=== PATIENT | male | born 1955 | race Caucasian/White ===

== ENCOUNTER 2017-03-14 18:14 | Emergency (ER) | payer OTHER ==
[~2017-03-14] VITALS: Ht 170.2 cm; Wt 111.1 kg
[~2017-03-14 18:14] MED LIST: ACET325 PO; AMLO10 PO; AMLO5 PO; ASPI325 PO; ASPI325EC PO; ASPI81EC PO; ATEN50; ATEN50 PO; ATOR10 PO; ATOR40TA PO; Aspirin EC325 MG PO; Aspirin EC81 MG PO; CIPR500 PO; CIPRO500 MG PO; CITA20 PO; CLOP75 PO; Celexa10 MG PO; Coreg12.5 MG PO; DOXY100 PO; ESCI20; FINA5 PO; FISH1000 PO; FURO40 PO; Fergon240 M1 PO; GEMF600 PO; GLIP5 PO; GLIP5ER PO; Glucophage1000 MG PO; HYDACE5 PO; HYDR1TAB94 PO; INSDET100 SC; ISOMON30; ISOSORBIDE; Isosorbide Mono60 MG PO; K-Dur20 MEQ PO; KETO10 PO; KOMBIGLYZE PO; KOMBIGLYZE XR; LIRA0.6P; Lyrica75 MG PO; MEDIDATE; MELO7.5 PO; METF500 PO; METF500C; METPHE20CR; NITR.4SL SL; NITRO PO; Norco 10-325 T1 EACH PO; OLME20 PO; OXYACE5T PO; OXYB5 PO; PANT40; PANT40 PO; PREG100 PO; PROM25 PO; PROSTATE HEALT1 EACH; RANO500T PO; RAPAFLO PO; Rapaflo8 MG PO; SIMV40 PO; SULTRIDS PO; TAMS.4ER PO; [UNRECOGNIZED DRUG - OTHER]; [UNRECOGNIZED DRUG - OTHER]; [UNRECOGNIZED DRUG - REMARK]; [UNRECOGNIZED DRUG - REMARK]; victoza SQ
[2017-03-14 18:57] LABS: BASOPHILS ABSOLUTE AUTO 0.04 K/mm3 (0.00-0.23); BASOPHILS PERCENT AUTO 0 % (0-2); EOSINOPHILS ABSOLUTE AUTO 0.27 K/mm3 (0.00-0.68); EOSINOPHILS PERCENT AUTO 2 % (0-6); Hematocrit 46.5 % (37.0-53.0); Hemoglobin 16.3 g/dL (13.5-17.5); IMMATURE GRAN ABSOLUTE AUTO 0.11 K/mm3 (0.00-0.10); IMMATURE GRAN PERCENT AUTO 1 % (0-1); LYMPHOCYTES ABSOLUTE AUTO 2.51 K/mm3 (0.84-5.20); LYMPHOCYTES PERCENT AUTO 16 % (21-46); MONOCYTES ABSOLUTE AUTO 2.08 K/mm3 (0.16-1.47); MONOCYTES PERCENT AUTO 13 % (4-13); Mean Corpuscular HGB 31.4 pg (26.0-34.0); Mean Corpuscular HGB Conc 35.1 g/dL (31.5-36.5); Mean Corpuscular Volume 90 fL (80-100); Mean Platelet Volume 10.7 fL (9.1-12.4); NEUTROPHILS ABSOLUTE AUTO 10.84 K/mm3 (1.96-9.15); NEUTROPHILS PERCENT AUTO 68 % (41-73); Platelet Count 310 K/mm3 (150-400); RDW Coefficient Variation 12.9 % (11.7-14.2); RDW Standard Deviation 42.1 fL (35.1-46.3); Red Blood Cell Count 5.19 M/mm3 (4.30-5.90); White Blood Cell Count 15.85 K/mm3 (4.00-11.30)
[2017-03-14] MEDS ORDERED: OXYC1TAB11 PO (19:08)
[2017-03-14 19:26] LABS: Alanine Aminotransfer (ALT/SGP 28 U/L (12-78); Albumin, Blood 3.6 g/dL (3.4-5.0); Albumin/Globulin Ratio 0.7 (0.8-1.8); Alk Phos 113 U/L (50-136); Anion Gap 12 mmol/L (6-16); Aspartate Aminotrans (AST/SGOT 20 U/L (12-37); Bilirubin, Total 0.6 mg/dL (0.1-1.0); Blood Urea Nitrogen 21 mg/dL (8-24); Bun/Creatinine Ratio 25.3 (12.0-20.0); CO2, Blood 24 mmol/L (21-32); Calcium, Blood 9.8 mg/dL (8.5-10.1); Chloride, Blood 101 mmol/L (98-108); Creatinine, Blood 0.83 mg/dL (0.60-1.20); Globulin, Blood 5.2 g/dL (2.2-4.0); Glomerular Filtration Rate >60 (60-); Glucose, Blood 175 mg/dL (70-99); Potassium, Blood 3.7 mmol/L (3.5-5.5); Sodium, Blood 137 mmol/L (136-145); Total Protein, Blood 8.8 g/dL (6.4-8.2); Troponin I <0.015 ng/mL (0.000-0.040)
[2017-03-14 20:04] LABS: Source, Urine Clean Catch
[2017-03-14 20:06] LABS: Appearance, Urine Cloudy (Clear); Bilirubin, Urine Neg (Neg); Blood, Urine 3+ (Neg); Color, Urine Yellow (P-Yellow); Glucose Qualitative, Urine Neg (Neg); Ketones, Urine Neg (Neg); Leukocyte Esterase, Urine 3+ (Neg); Nitrite, Urine Neg (Neg); Protein, Urine 2+ (Neg); Specific Gravity, Urine 1.015 (1.003-1.022); Urobilinogen, Urine NORM (Normal)
[2017-03-14 20:15] LABS: Bacteria Mod /hpf; Red Blood Cells, Urine 0-2 /hpf (0-2); Squamous Epithelial Cells Few /hpf (Few); White Blood Cells, Urine TNTC /hpf (0-5)
[2017-03-14] MEDS ORDERED: Prednisone20 MG PO (22:56)
[2017-12-16] MEDS ORDERED: CEPH500 PO (17:56)
== END 2017-03-14 23:20 | disposition home or self-care (01) ==
LOC: ER 18:14
PROVIDERS: Physician Assistant
DX: R55 Syncope and collapse (principal); S01.01XA Laceration without foreign body of scalp, initial encounter; G93.89 Other specified disorders of brain; N39.0 Urinary tract infection, site not specified; I10 Essential (primary) hypertension; E11.9 Type 2 diabetes mellitus without complications; E78.00 Pure hypercholesterolemia, unspecified; I25.2 Old myocardial infarction; Z88.8 Allergy status to other drugs, medicaments and biological substances; Z79.899 Other long term (current) drug therapy; Z79.82 Long term (current) use of aspirin; Z79.4 Long term (current) use of insulin; Z95.5 Presence of coronary angioplasty implant and graft; Z87.442 Personal history of urinary calculi; W22.8XXA Striking against or struck by other objects, initial encounter; Y92.002 Bathroom of unspecified non-institutional (private) residence as the place of occurrence of the external cause
CPT/HCPCS: 12011; 36415; 70450; 71045; 72125; 80053; 81001; 84484; 85025; 87077; 87086; 87186; 90471; 90714; 93005; 93010; 96374; 96375; 99284; J1100; J2405

== ENCOUNTER 2017-03-17 17:05 | Emergency (ER) | payer OTHER ==
[~2017-03-17] VITALS: Ht 170.2 cm; Wt 95.2 kg
[~2017-03-17 17:05] MED LIST changes: +OXYC1TAB11 PO; +Prednisone20 MG PO
[2017-03-17 21:18] LABS: BASOPHILS ABSOLUTE AUTO 0.04 K/mm3 (0.00-0.23); BASOPHILS PERCENT AUTO 0 % (0-2); EOSINOPHILS PERCENT AUTO 0 % (0-6); Hematocrit 42.1 % (37.0-53.0); Hemoglobin 14.3 g/dL (13.5-17.5); IMMATURE GRAN ABSOLUTE AUTO 0.12 K/mm3 (0.00-0.10); IMMATURE GRAN PERCENT AUTO 1 % (0-1); LYMPHOCYTES ABSOLUTE AUTO 1.58 K/mm3 (0.84-5.20); LYMPHOCYTES PERCENT AUTO 11 % (21-46); MONOCYTES ABSOLUTE AUTO 1.79 K/mm3 (0.16-1.47); MONOCYTES PERCENT AUTO 12 % (4-13); Mean Corpuscular HGB 29.9 pg (26.0-34.0); Mean Corpuscular Volume 88 fL (80-100); Mean Platelet Volume 10.4 fL (9.1-12.4); NEUTROPHILS ABSOLUTE AUTO 11.36 K/mm3 (1.96-9.15); NEUTROPHILS PERCENT AUTO 76 % (41-73); Platelet Count 259 K/mm3 (150-400); RDW Coefficient Variation 12.4 % (11.7-14.2); RDW Standard Deviation 40.2 fL (35.1-46.3); Red Blood Cell Count 4.78 M/mm3 (4.30-5.90); White Blood Cell Count 14.89 K/mm3 (4.00-11.30)
[2017-03-17 21:38] LABS: Alanine Aminotransfer (ALT/SGP 25 U/L (12-78); Albumin, Blood 3.5 g/dL (3.4-5.0); Albumin/Globulin Ratio 0.7 (0.8-1.8); Alk Phos 103 U/L (50-136); Anion Gap 9 mmol/L (6-16); Aspartate Aminotrans (AST/SGOT 13 U/L (12-37); Bilirubin, Total 0.4 mg/dL (0.1-1.0); Blood Urea Nitrogen 27 mg/dL (8-24); Bun/Creatinine Ratio 34.4 (12.0-20.0); CO2, Blood 27 mmol/L (21-32); Calcium, Blood 9.5 mg/dL (8.5-10.1); Chloride, Blood 101 mmol/L (98-108); Creatinine, Blood 0.79 mg/dL (0.60-1.20); Globulin, Blood 4.9 g/dL (2.2-4.0); Glomerular Filtration Rate >60 (60-); Glucose, Blood 268 mg/dL (70-99); Potassium, Blood 3.6 mmol/L (3.5-5.5); Sodium, Blood 137 mmol/L (136-145); Total Protein, Blood 8.4 g/dL (6.4-8.2)
[2017-12-16] MEDS ORDERED: CEPH500 PO (17:56)
== END 2017-03-17 23:28 | disposition home or self-care (01) ==
LOC: ER 17:05
PROVIDERS: Emergency Medicine
DX: G93.89 Other specified disorders of brain (principal); I10 Essential (primary) hypertension; N39.0 Urinary tract infection, site not specified; E11.9 Type 2 diabetes mellitus without complications; I25.2 Old myocardial infarction; Z88.8 Allergy status to other drugs, medicaments and biological substances; Z79.899 Other long term (current) drug therapy; Z79.82 Long term (current) use of aspirin; Z79.4 Long term (current) use of insulin; Z79.52 Long term (current) use of systemic steroids
CPT/HCPCS: 36415; 70450; 80053; 84443; 85025; 96374; 96375; 99284; J0696; J2270

== ENCOUNTER 2017-04-06 18:49 | Emergency (ER) | payer OTHER ==
[~2017-04-06] VITALS: Ht 170.2 cm; Wt 99.8 kg
[2017-04-06 19:27] LABS: BASOPHILS ABSOLUTE AUTO 0.07 K/mm3 (0.00-0.23); BASOPHILS PERCENT AUTO 1 % (0-2); EOSINOPHILS ABSOLUTE AUTO 0.32 K/mm3 (0.00-0.68); EOSINOPHILS PERCENT AUTO 3 % (0-6); Hematocrit 43.9 % (37.0-53.0); Hemoglobin 14.7 g/dL (13.5-17.5); IMMATURE GRAN ABSOLUTE AUTO 0.06 K/mm3 (0.00-0.10); IMMATURE GRAN PERCENT AUTO 1 % (0-1); LYMPHOCYTES ABSOLUTE AUTO 3.27 K/mm3 (0.84-5.20); LYMPHOCYTES PERCENT AUTO 34 % (21-46); MONOCYTES ABSOLUTE AUTO 0.96 K/mm3 (0.16-1.47); MONOCYTES PERCENT AUTO 10 % (4-13); Mean Corpuscular HGB 30.6 pg (26.0-34.0); Mean Corpuscular HGB Conc 33.5 g/dL (31.5-36.5); Mean Corpuscular Volume 92 fL (80-100); NEUTROPHILS ABSOLUTE AUTO 4.88 K/mm3 (1.96-9.15); NEUTROPHILS PERCENT AUTO 51 % (41-73); Platelet Count 221 K/mm3 (150-400); RDW Coefficient Variation 13.2 % (11.7-14.2); RDW Standard Deviation 43.8 fL (35.1-46.3); White Blood Cell Count 9.56 K/mm3 (4.00-11.30)
[2017-04-06 19:36] LABS: Anion Gap 10 mmol/L (6-16); Blood Urea Nitrogen 24 mg/dL (8-24); CO2, Blood 25 mmol/L (21-32); Calcium, Blood 9.6 mg/dL (8.5-10.1); Chloride, Blood 102 mmol/L (98-108); Creatinine, Blood 0.77 mg/dL (0.60-1.20); Glomerular Filtration Rate >60 (60-); Glucose, Blood 138 mg/dL (70-99); Potassium, Blood 4.1 mmol/L (3.5-5.5); Sodium, Blood 137 mmol/L (136-145)
[2017-04-06] MEDS ORDERED: LEVE500 PO (20:19)
[2017-12-16] MEDS ORDERED: CEPH500 PO (17:56)
== END 2017-04-06 20:40 | disposition home or self-care (01) ==
LOC: ER 18:49
PROVIDERS: Emergency Medicine
DX: G40.909 Epilepsy, unspecified, not intractable, without status epilepticus (principal); I25.10 Atherosclerotic heart disease of native coronary artery without angina pectoris; E11.9 Type 2 diabetes mellitus without complications; C79.31 Secondary malignant neoplasm of brain; I10 Essential (primary) hypertension; E78.5 Hyperlipidemia, unspecified; Z87.442 Personal history of urinary calculi; Z88.8 Allergy status to other drugs, medicaments and biological substances; Z79.899 Other long term (current) drug therapy; Z79.52 Long term (current) use of systemic steroids; Z79.4 Long term (current) use of insulin; Z79.82 Long term (current) use of aspirin
CPT/HCPCS: 70450; 80048; 85025; 93005; 93010; 96365; 99284; J1953

== ENCOUNTER 2017-05-19 05:50 | Day surgery (SDC) | payer OTHER ==
[~2017-05-19] VITALS: Ht 167.6 cm; Wt 103.9 kg
[~2017-05-19 05:50] MED LIST changes: +LEVE500 PO
[2017-05-19] MEDS ORDERED: HYDR1TAB94 PO (06:47)
[2017-05-19] MEDS ORDERED: AMIT50 PO (06:48)
[2017-05-19] MEDS ORDERED: ATORVASTATIN CA10 MG (06:49)
[2017-05-19] MEDS ORDERED: APLENZIN174 MG PO (06:51)
[2017-05-19] MEDS ORDERED: Humalog100 UNIT/1 (06:52)
[2017-05-19] MEDS ORDERED: BASAGLAR K100 UNIT/1 (06:52)
[2017-05-19] MEDS ORDERED: CARV3.125 (07:35)
[2017-12-16] MEDS ORDERED: CEPH500 PO (17:56)
== END 2017-05-19 22:38 | disposition home or self-care (01) ==
LOC: ORSCMMR 05:50 → ORD 07:30 → ORSCMMR 07:30
PROVIDERS: Surgery
PROC: B5181ZA Fluoroscopy of Superior Vena Cava using Low Osmolar Contrast, Guidance (ICD-10-PCS; principal; 2017-05-19 07:30)
PROC: 02HV33Z Insertion of Infusion Device into Superior Vena Cava, Percutaneous Approach (ICD-10-PCS; principal; 2017-05-19 07:30)
DX: C79.31 Secondary malignant neoplasm of brain (principal); I10 Essential (primary) hypertension; E11.9 Type 2 diabetes mellitus without complications; I25.10 Atherosclerotic heart disease of native coronary artery without angina pectoris; Z79.4 Long term (current) use of insulin; Z79.899 Other long term (current) drug therapy; E66.01 Morbid (severe) obesity due to excess calories; Z68.37 Body mass index [BMI] 37.0-37.9, adult
CPT/HCPCS: 77001; 82947; C1788; J0690; J1642; J2250; J3010; J7120

== ENCOUNTER 2017-08-19 11:02 | Emergency (ER) | payer OTHER ==
[~2017-08-19] VITALS: Ht 170.2 cm; Wt 104.3 kg
[~2017-08-19 11:02] MED LIST changes: +AMIT50 PO; +APLENZIN174 MG PO; +ATORVASTATIN CA10 MG; +BASAGLAR K100 UNIT/1; +CARV3.125; +Humalog100 UNIT/1
[2017-08-19 14:00] LABS: Calcium, Ionized (POC) 1.25 mmol/L (1.10-1.46); Chloride (POC) 102 mmol/L (98-108); Creatinine (POC) 0.5 mg/dL (0.8-1.3); Glucose (ISTAT POC) 269 mg/dL (70-99); Hemoglobin (POC) 15.3 g/dL (13.5-17.5); Potassium (POC) 3.6 mmol/L (3.5-5.5); Sodium (POC) 140 mmol/L (135-148); Total CO2 (POC) 24 mmol/L (21-32)
[2017-08-19] MEDS ORDERED: Lisinopril2.5 MG PO (14:17)
== END 2017-08-19 14:40 | disposition home or self-care (01) ==
LOC: ER 11:02
PROVIDERS: Physician Assistant
DX: I10 Essential (primary) hypertension (principal); Z88.8 Allergy status to other drugs, medicaments and biological substances; Z79.899 Other long term (current) drug therapy; Z79.82 Long term (current) use of aspirin; Z79.4 Long term (current) use of insulin; E11.9 Type 2 diabetes mellitus without complications; I25.2 Old myocardial infarction
CPT/HCPCS: 36415; 80047; 85014; 93005; 93010; 99283

== ENCOUNTER 2018-11-27 12:13 | Emergency (ER) | payer OTHER ==
[~2018-11-27] VITALS: Ht 170.2 cm; Wt 111.1 kg
[~2018-11-27 12:13] MED LIST changes: +CEPH500 PO; +Lisinopril2.5 MG PO
[2018-11-27 12:47] LABS: BASOPHILS ABSOLUTE AUTO 0.11 K/mm3 (0.00-0.23); BASOPHILS PERCENT AUTO 1 % (0-2); EOSINOPHILS ABSOLUTE AUTO 0.37 K/mm3 (0.00-0.68); EOSINOPHILS PERCENT AUTO 3 % (0-6); Hematocrit 50.8 % (37.0-53.0); Hemoglobin 16.5 g/dL (13.5-17.5); IMMATURE GRAN ABSOLUTE AUTO 0.19 K/mm3 (0.00-0.10); IMMATURE GRAN PERCENT AUTO 2 % (0-1); LYMPHOCYTES ABSOLUTE AUTO 1.87 K/mm3 (0.84-5.20); LYMPHOCYTES PERCENT AUTO 15 % (21-46); MONOCYTES ABSOLUTE AUTO 1.27 K/mm3 (0.16-1.47); MONOCYTES PERCENT AUTO 10 % (4-13); Mean Corpuscular HGB 30.2 pg (26.0-34.0); Mean Corpuscular HGB Conc 32.5 g/dL (31.5-36.5); Mean Corpuscular Volume 93 fL (80-100); Mean Platelet Volume 11.1 fL (9.1-12.4); NEUTROPHILS ABSOLUTE AUTO 9.12 K/mm3 (1.96-9.15); NEUTROPHILS PERCENT AUTO 70 % (41-73); Platelet Count 215 K/mm3 (150-400); RDW Coefficient Variation 13.1 % (11.7-14.2); RDW Standard Deviation 44.1 fL (35.1-46.3); Red Blood Cell Count 5.46 M/mm3 (4.30-5.90); White Blood Cell Count 12.93 K/mm3 (4.00-11.30)
[2018-11-27 13:18] LABS: Alanine Aminotransfer (ALT/SGP 34 U/L (12-78); Albumin, Blood 3.9 g/dL (3.4-5.0); Albumin/Globulin Ratio 0.9 (0.8-1.8); Alk Phos 109 U/L (50-136); Anion Gap 8 mmol/L (6-16); Aspartate Aminotrans (AST/SGOT 18 U/L (12-37); Bilirubin, Total 0.5 mg/dL (0.1-1.0); Blood Urea Nitrogen 23 mg/dL (8-24); Bun/Creatinine Ratio 25.4 (12.0-20.0); CO2, Blood 27 mmol/L (21-32); Calcium, Blood 9.7 mg/dL (8.5-10.1); Chloride, Blood 100 mmol/L (98-108); Creatinine, Blood 0.91 mg/dL (0.60-1.20); Globulin, Blood 4.5 g/dL (2.2-4.0); Glomerular Filtration Rate >60 (60-); Glucose, Blood 260 mg/dL (70-99); Magnesium, Blood 1.7 mg/dL (1.6-2.4); Potassium, Blood 4.1 mmol/L (3.5-5.5); Sodium, Blood 135 mmol/L (136-145); Total Protein, Blood 8.4 g/dL (6.4-8.2)
[2018-11-27] MEDS ORDERED: FINA5 PO (15:20)
[2018-11-27] MEDS ORDERED: METF500 PO (15:20)
[2018-11-27] MEDS ORDERED: TAMS.4ER PO (15:20)
[2018-11-27] MEDS ORDERED: BUPR150ER PO ×2 (15:21→15:22)
[2018-11-27] MEDS ORDERED: ACYC800 PO (15:21)
[2018-11-27] MEDS ORDERED: AMIT50 PO (15:21)
[2018-11-27] MEDS ORDERED: ATOR10 PO (15:22)
[2018-11-27] MEDS ORDERED: CARV6.25 PO (15:22)
[2018-11-27] MEDS ORDERED: ASPI325 PO (15:23)
[2018-11-27] MEDS ORDERED: Humalog100 UNIT/1 SC (15:23)
[2018-11-27] MEDS ORDERED: INSULANPEN SC (15:23)
[2018-11-27] MEDS ORDERED: LEVE500 PO (15:24)
[2018-11-27] MEDS ORDERED: ALPR.25 PO (15:25)
[2018-11-27] MEDS ORDERED: PRED5 PO (15:26)
[2018-11-27] MEDS ORDERED: POTA10T PO (15:26)
[2018-11-27] MEDS ORDERED: LISI20 PO (15:26)
[2018-11-27 17:13] LABS: Source, Urine Clean Catch
[2018-11-27 17:18] LABS: Bilirubin, Urine Neg (Neg); Blood, Urine Neg (Neg); Glucose Qualitative, Urine 4+ (Neg); Ketones, Urine 1+ (Neg); Leukocyte Esterase, Urine 1+ (Neg); Nitrite, Urine Neg (Neg); Protein, Urine 1+ (Neg); Urobilinogen, Urine NORM (Normal)
[2018-11-27 17:21] LABS: Appearance, Urine Clear (Clear); Color, Urine Yellow (P-Yellow)
[2018-11-27 17:42] LABS: Red Blood Cells, Urine Not Seen /hpf (0-2); White Blood Cells, Urine 0-2 /hpf (0-5)
[2018-11-27 17:43] LABS: Bacteria Few /hpf; Squamous Epithelial Cells Few /hpf (Few)
== END 2018-11-27 19:57 | disposition home or self-care (01) ==
LOC: ER 12:13
PROVIDERS: Physician Assistant
DX: R41.0 Disorientation, unspecified (principal); Z85.841 Personal history of malignant neoplasm of brain; Z88.8 Allergy status to other drugs, medicaments and biological substances; Z79.899 Other long term (current) drug therapy; Z79.82 Long term (current) use of aspirin; Z79.4 Long term (current) use of insulin; I10 Essential (primary) hypertension; E11.9 Type 2 diabetes mellitus without complications; I25.2 Old myocardial infarction
CPT/HCPCS: 36415; 70450; 71046; 80053; 81001; 82140; 83735; 84484; 85025; 87086; 93005; 93010; 99284-25; J7030

== ENCOUNTER 2020-02-02 11:00 | Day surgery (SDC) | payer BC, MEDICARE ==
[~2020-02-02 11:00] MED LIST changes: +ACYC800 PO; +ALPR.25 PO; +BUPR150ER PO; +CARV6.25 PO; +FLOMAX0.4 MG PO; +HYDCHL25 PO; +Humalog100 UNIT/1 SC; +INSULANPEN SC; +LISI20 PO; +POTA10T PO; +PRED5 PO
--- NOTE | 2020-02-02 13:17 | NUR ---
02/02/20 1317 Darcy Figueroa BUPIVICAINE 0.5% & LIDOCAINE 1% MIXED 1:1 FOR PRE SX INJECTION BY DR. LOCKETT.
== END 2020-02-02 14:49 | disposition home or self-care (01) ==
LOC: ORSCSDS 11:00
PROVIDERS: Podiatrist
PROC: 0SGQ04Z Fusion of Left Toe Phalangeal Joint with Internal Fixation Device, Open Approach (ICD-10-PCS; principal; 2020-02-02 12:30)
DX: M19.072 Primary osteoarthritis, left ankle and foot (principal); M1A.0720 Idiopathic chronic gout, left ankle and foot, without tophus (tophi); E11.9 Type 2 diabetes mellitus without complications; I10 Essential (primary) hypertension; I25.10 Atherosclerotic heart disease of native coronary artery without angina pectoris; G47.33 Obstructive sleep apnea (adult) (pediatric); G40.89 Other seizures; E66.01 Morbid (severe) obesity due to excess calories; Z68.41 Body mass index [BMI] 40.0-44.9, adult; Z79.899 Other long term (current) drug therapy
CPT/HCPCS: 82947; C1713; J0690; J1100; J2250; J2405; J2704; J3010; J7120

== ENCOUNTER 2020-04-05 11:35 | Day surgery (SDC) | payer BC, MEDICARE ==
[~2020-04-05] VITALS: Ht 170.2 cm; Wt 113.1 kg
[~2020-04-05 11:35] MED LIST changes: +BASAGLAR K100 UNIT/1 SC; +BUPROPION XL150 M1 PO; +LOSA50 PO; +Norco 5-325 Ta1 EACH PO; +OZEMPIC0.25 MG/0. SC
--- NOTE | 2020-04-05 13:17 | NUR ---
04/05/20 1317 Cecile Alas V PT RESTING IN BED, SIDE RAILS IN PLACE, CALL LIGHT WITHIN REACH, VSS. PT DENIES ANY QUESTIONS AT THIS TIME.
--- NOTE | 2020-04-05 15:34 | NUR ---
04/05/20 1534 Cristina Don RECEIVED REPORT FROM HAYDEE MOSQUEDA. PATIENT WAS ASSISTED TO RECLINER WITHOUT DIFFICULTY AND WAS ABLE TO TRANSFER WITH MINIMAL ASSISTANCE. PATIENT STATES NO PAIN OR NAUSEA AT THIS TIME. HE IS DRINKING AND EATING AND STATES HE FEELS OK. THERE IS A SMALL AMOUNT OF BLEEDING THROUGH AT THE TOP OF THE GREAT TOE. ICE PACK APPLIED TO LEG AND LEG IS ELEVATED. WILL MONITOR
[2020-04-19] MEDS ORDERED: BUPR150ER PO (10:39)
[2020-05-24] MEDS ORDERED: ACYC400 PO (12:07)
[2020-05-24] MEDS ORDERED: ALPR.25 PO (12:08)
[2020-05-24] MEDS ORDERED: NORVASC2.5 MG PO (12:08)
[2020-05-24] MEDS ORDERED: Aspirin EC81 MG PO (12:08)
[2020-05-24] MEDS ORDERED: ATOR10 PO (12:08)
[2020-05-24] MEDS ORDERED: CARV25 PO (12:09)
[2020-05-24] MEDS ORDERED: BUPR150ER PO (12:09)
[2020-05-24] MEDS ORDERED: HYDCHL12.5 PO (12:10)
[2020-05-24] MEDS ORDERED: FINA5 PO (12:10)
[2020-05-24] MEDS ORDERED: Flovent Diskus50 MCG INH (12:10)
[2020-05-24] MEDS ORDERED: NOVOLIN 70100 UNIT/4 (12:11)
[2020-05-24] MEDS ORDERED: BASAGLAR K100 UNIT/1 (12:11)
[2020-05-24] MEDS ORDERED: KEPPRA XR750 MG PO (12:11)
[2020-05-24] MEDS ORDERED: GLUCOPHAGE1000 M1 PO (12:12)
[2020-05-24] MEDS ORDERED: LOSA50 PO (12:12)
[2020-05-24] MEDS ORDERED: OMEP20ER PO (12:12)
[2020-05-24] MEDS ORDERED: K-Dur10 MEQ PO (12:12)
[2020-05-24] MEDS ORDERED: Deltasone 10 mg10 MG PO (12:13)
[2020-05-24] MEDS ORDERED: OZEMPIC0.25 MG/0. SC (12:13)
[2020-05-24] MEDS ORDERED: Flomax0.4 MG PO (12:14)
== END 2020-04-05 16:15 | disposition home or self-care (01) ==
LOC: ORSCSDS 11:35
PROVIDERS: Podiatrist
PROC: 0SPQ04Z Removal of Internal Fixation Device from Left Toe Phalangeal Joint, Open Approach (ICD-10-PCS; principal; 2020-04-05 13:45)
PROC: 0SGQ04Z Fusion of Left Toe Phalangeal Joint with Internal Fixation Device, Open Approach (ICD-10-PCS; principal; 2020-04-05 13:45)
DX: M19.072 Primary osteoarthritis, left ankle and foot (principal); T84.223S Displacement of internal fixation device of bones of foot and toes, sequela; I10 Essential (primary) hypertension; E11.9 Type 2 diabetes mellitus without complications; I25.10 Atherosclerotic heart disease of native coronary artery without angina pectoris; G40.909 Epilepsy, unspecified, not intractable, without status epilepticus; E66.01 Morbid (severe) obesity due to excess calories; Z68.39 Body mass index [BMI] 39.0-39.9, adult; G47.33 Obstructive sleep apnea (adult) (pediatric); Z79.899 Other long term (current) drug therapy; Z79.82 Long term (current) use of aspirin; Z79.4 Long term (current) use of insulin
CPT/HCPCS: 82947; A9270; C1713; J0690; J1100; J2250; J2405; J2704; J3010

== ENCOUNTER 2020-04-10 09:06 | Emergency (ER) | payer BC, MEDICARE ==
[~2020-04-10] VITALS: Ht 170.2 cm; Wt 110.2 kg
[2020-04-10] MEDS ORDERED: OMEP20ER PO (09:28)
[2020-04-10] MEDS ORDERED: AMLO5 PO (09:28)
[2020-04-10] MEDS ORDERED: SPIRULINA PO (09:30)
[2020-04-10] MEDS ORDERED: THERA-D2000 UNIT PO (09:30)
[2020-04-10 09:47] LABS: BASOPHILS ABSOLUTE AUTO 0.11 K/mm3 (0.00-0.23); BASOPHILS PERCENT AUTO 1 % (0-2); EOSINOPHILS PERCENT AUTO 1 % (0-6); Hematocrit 48.3 % (37.0-53.0); Hemoglobin 15.7 g/dL (13.5-17.5); IMMATURE GRAN ABSOLUTE AUTO 0.14 K/mm3 (0.00-0.10); IMMATURE GRAN PERCENT AUTO 1 % (0-1); LYMPHOCYTES PERCENT AUTO 12 % (21-46); MONOCYTES ABSOLUTE AUTO 1.08 K/mm3 (0.16-1.47); MONOCYTES PERCENT AUTO 7 % (4-13); Mean Corpuscular HGB 29.3 pg (26.0-34.0); Mean Corpuscular HGB Conc 32.5 g/dL (31.5-36.5); Mean Corpuscular Volume 90 fL (80-100); NEUTROPHILS ABSOLUTE AUTO 12.03 K/mm3 (1.96-9.15); NEUTROPHILS PERCENT AUTO 79 % (41-73); RDW Coefficient Variation 13.6 % (11.7-14.2); RDW Standard Deviation 44.8 fL (35.1-46.3); Red Blood Cell Count 5.36 M/mm3 (4.30-5.90); White Blood Cell Count 15.26 K/mm3 (4.00-11.30)
[2020-04-10 09:54] LABS: Platelet Count 191 K/mm3 (150-400)
[2020-04-10 10:14] LABS: Alanine Aminotransfer (ALT/SGP 35 U/L (12-78); Alk Phos 90 U/L (50-136); Anion Gap 9 mmol/L (6-16); Aspartate Aminotrans (AST/SGOT 11 U/L (12-37); Bilirubin, Total 0.6 mg/dL (0.1-1.0); Blood Urea Nitrogen 26 mg/dL (8-24); Bun/Creatinine Ratio 31.9 (12.0-20.0); CO2, Blood 27 mmol/L (21-32); Calcium, Blood 9.6 mg/dL (8.5-10.1); Chloride, Blood 101 mmol/L (98-108); Creatinine, Blood 0.82 mg/dL (0.60-1.20); Glomerular Filtration Rate >60 (60-); Glucose, Blood 272 mg/dL (70-99); Potassium, Blood 3.7 mmol/L (3.5-5.5); Sodium, Blood 137 mmol/L (136-145)
[2020-04-10 10:47] LABS: Source, Urine Clean Catch
[2020-04-10 10:55] LABS: Bilirubin, Urine Neg (Neg); Blood, Urine 5+ (Neg); Glucose Qualitative, Urine 4+ (Neg); Ketones, Urine 2+ (Neg); Leukocyte Esterase, Urine 2+ (Neg); Nitrite, Urine Neg (Neg); Protein, Urine 3+ (Neg); Specific Gravity, Urine 1.015 (1.003-1.022); Urobilinogen, Urine NORM (Normal)
[2020-04-10 11:06] LABS: Appearance, Urine Hazy (Clear); Color, Urine Yellow (P-Yellow); Red Blood Cells, Urine TNTC /hpf (0-2); Squamous Epithelial Cells Few /hpf (Few)
[2020-04-10 11:07] LABS: Bacteria Rare /hpf
[2020-04-10] MEDS ORDERED: CEFD300 PO (13:53)
[2020-04-10] MEDS ORDERED: ONDA4ODT MM (13:53)
[2020-04-19] MEDS ORDERED: BUPR150ER PO (10:39)
[2020-05-24] MEDS ORDERED: ACYC400 PO (12:07)
[2020-05-24] MEDS ORDERED: NORVASC2.5 MG PO (12:08)
[2020-05-24] MEDS ORDERED: ATOR10 PO (12:08)
[2020-05-24] MEDS ORDERED: Aspirin EC81 MG PO (12:08)
[2020-05-24] MEDS ORDERED: ALPR.25 PO (12:08)
[2020-05-24] MEDS ORDERED: BUPR150ER PO (12:09)
[2020-05-24] MEDS ORDERED: CARV25 PO (12:09)
[2020-05-24] MEDS ORDERED: Flovent Diskus50 MCG INH (12:10)
[2020-05-24] MEDS ORDERED: HYDCHL12.5 PO (12:10)
[2020-05-24] MEDS ORDERED: FINA5 PO (12:10)
[2020-05-24] MEDS ORDERED: KEPPRA XR750 MG PO (12:11)
[2020-05-24] MEDS ORDERED: NOVOLIN 70100 UNIT/4 (12:11)
[2020-05-24] MEDS ORDERED: BASAGLAR K100 UNIT/1 (12:11)
[2020-05-24] MEDS ORDERED: OMEP20ER PO (12:12)
[2020-05-24] MEDS ORDERED: GLUCOPHAGE1000 M1 PO (12:12)
[2020-05-24] MEDS ORDERED: K-Dur10 MEQ PO (12:12)
[2020-05-24] MEDS ORDERED: LOSA50 PO (12:12)
[2020-05-24] MEDS ORDERED: Deltasone 10 mg10 MG PO (12:13)
[2020-05-24] MEDS ORDERED: OZEMPIC0.25 MG/0. SC (12:13)
[2020-05-24] MEDS ORDERED: Flomax0.4 MG PO (12:14)
== END 2020-04-10 14:30 | disposition home or self-care (01) ==
LOC: ER 09:06
PROVIDERS: Emergency Medicine
DX: N13.2 Hydronephrosis with renal and ureteral calculous obstruction (principal); I10 Essential (primary) hypertension; E11.9 Type 2 diabetes mellitus without complications; I25.2 Old myocardial infarction; E78.00 Pure hypercholesterolemia, unspecified; Z88.8 Allergy status to other drugs, medicaments and biological substances; Z95.5 Presence of coronary angioplasty implant and graft; Z79.4 Long term (current) use of insulin; Z87.442 Personal history of urinary calculi; Z79.899 Other long term (current) drug therapy
CPT/HCPCS: 36415; 74176; 80053; 81001; 85025; 87077; 87086; 87147; 87186; 96374; 96375; 99284-25; A9270; J0696; J1170; J1885; J2405

== ENCOUNTER 2020-05-31 12:52 | Day surgery (SDC) | payer BC, MEDICARE ==
[~2020-05-31] VITALS: Ht 170.2 cm; Wt 111.8 kg
[~2020-05-31 12:52] MED LIST changes: +ACYC400 PO; +CARV25 PO; +CEFD300 PO; +Deltasone 10 mg10 MG PO; +Flomax0.4 MG PO; +Flovent Diskus50 MCG INH; +GLUCOPHAGE1000 M1 PO; +HYDCHL12.5 PO; +K-Dur10 MEQ PO; +KEPPRA XR750 MG PO; +NORVASC2.5 MG PO; +NOVOLIN 70100 UNIT/4; +OMEP20ER PO; +ONDA4ODT MM; +SPIRULINA PO; +THERA-D2000 UNIT PO
--- NOTE | 2020-05-31 15:02 | NUR ---
05/31/20 1502 Minal Merino PT ARRIVED TO STEPDOWN DROWSY WITH O2 SAT AROUND 89%. OPENS EYES TO VOICE BUT CLOSES AGAIN. OXYGEN PLACED AT 15L NRB. PT. AWAKENS AFTER 5-6 MINUTES. REMOVED O2. OXYGEN SAT REMAIN 95% ON ROOM AIR. BOOT APPLIED TO L FOOT AND ASSISTED TO CHAIR. DENIES PAIN OR SOB.
== END 2020-05-31 15:48 | disposition home or self-care (01) ==
LOC: ORSCSDS 12:52
PROVIDERS: Podiatrist
PROC: 0SPQ04Z Removal of Internal Fixation Device from Left Toe Phalangeal Joint, Open Approach (ICD-10-PCS; principal; 2020-05-31 14:00)
PROC: 0SGN04Z Fusion of Left Metatarsal-Phalangeal Joint with Internal Fixation Device, Open Approach (ICD-10-PCS; principal; 2020-05-31 14:00)
DX: M19.072 Primary osteoarthritis, left ankle and foot (principal); I10 Essential (primary) hypertension; E11.9 Type 2 diabetes mellitus without complications; Z79.4 Long term (current) use of insulin; Z79.899 Other long term (current) drug therapy; Z79.82 Long term (current) use of aspirin; E66.01 Morbid (severe) obesity due to excess calories; Z68.38 Body mass index [BMI] 38.0-38.9, adult
CPT/HCPCS: 82947; A9270; J0690; J2704; J3010; J7120

== ENCOUNTER 2021-02-06 14:44 | Day surgery (SDC) | payer BC, MEDICARE | END 2021-02-06 17:10 | disposition home or self-care (01) | LOC: ATC 14:44 | DX: U07.1 COVID-19 (principal); E11.9 Type 2 diabetes mellitus without complications; I10 Essential (primary) hypertension; Z85.820 Personal history of malignant melanoma of skin; Z85.841 Personal history of malignant neoplasm of brain | CPT/HCPCS: J1642; Q0243 ==

== ENCOUNTER 2021-03-08 11:31 | Emergency (ER) | payer MEDICARE ==
[~2021-03-08] VITALS: Ht 170.2 cm; Wt 108.9 kg
[2021-03-08 12:38] LABS: BASOPHILS ABSOLUTE AUTO 0.09 K/mm3 (0.00-0.23); BASOPHILS PERCENT AUTO 1 % (0-2); EOSINOPHILS PERCENT AUTO 1 % (0-6); Hematocrit 46.6 % (37.0-53.0); Hemoglobin 15.9 g/dL (13.5-17.5); IMMATURE GRAN ABSOLUTE AUTO 0.09 K/mm3 (0.00-0.10); IMMATURE GRAN PERCENT AUTO 1 % (0-1); LYMPHOCYTES ABSOLUTE AUTO 1.98 K/mm3 (0.84-5.20); LYMPHOCYTES PERCENT AUTO 17 % (21-46); MONOCYTES ABSOLUTE AUTO 0.83 K/mm3 (0.16-1.47); MONOCYTES PERCENT AUTO 7 % (4-13); Mean Corpuscular HGB 29.8 pg (26.0-34.0); Mean Corpuscular HGB Conc 34.1 g/dL (31.5-36.5); Mean Corpuscular Volume 87 fL (80-100); Mean Platelet Volume 10.8 fL (9.1-12.4); NEUTROPHILS ABSOLUTE AUTO 8.86 K/mm3 (1.96-9.15); NEUTROPHILS PERCENT AUTO 74 % (41-73); Platelet Count 220 K/mm3 (150-400); RDW Coefficient Variation 14.2 % (11.7-14.2); RDW Standard Deviation 45.3 fL (35.1-46.3); Red Blood Cell Count 5.33 M/mm3 (4.30-5.90); White Blood Cell Count 11.95 K/mm3 (4.00-11.30)
[2021-03-08 13:13] LABS: Alanine Aminotransfer (ALT/SGP 30 U/L (12-78); Albumin, Blood 3.8 g/dL (3.4-5.0); Albumin/Globulin Ratio 1.1 (0.8-1.8); Alk Phos 71 U/L (50-136); Anion Gap 10 mmol/L (6-16); Aspartate Aminotrans (AST/SGOT 18 U/L (12-37); Bilirubin, Total 0.6 mg/dL (0.1-1.0); Blood Urea Nitrogen 24 mg/dL (8-24); CO2, Blood 25 mmol/L (21-32); Calcium, Blood 9.4 mg/dL (8.5-10.1); Chloride, Blood 105 mmol/L (98-108); Creatinine, Blood 0.86 mg/dL (0.60-1.20); Globulin, Blood 3.5 g/dL (2.2-4.0); Glomerular Filtration Rate >60 (60-); Glucose, Blood 107 mg/dL (70-99); Potassium, Blood 3.6 mmol/L (3.5-5.5); Sodium, Blood 140 mmol/L (136-145); Total Protein, Blood 7.3 g/dL (6.4-8.2)
[2021-03-08 13:49] LABS: Source, Urine Clean Catch
[2021-03-08 14:10] LABS: Appearance, Urine Hazy (Clear); Bilirubin, Urine Neg (Neg); Blood, Urine 1+ (Neg); Color, Urine Yellow (P-Yellow); Glucose Qualitative, Urine Neg (Neg); Ketones, Urine Neg (Neg); Leukocyte Esterase, Urine 3+ (Neg); Nitrite, Urine Pos (Neg); Protein, Urine 2+ (Neg); Urobilinogen, Urine 1+ (Normal)
[2021-03-08 14:24] LABS: White Blood Cells, Urine 25-50 /hpf (0-5)
[2021-03-08 14:25] LABS: Bacteria Many /hpf; Red Blood Cells, Urine 0-2 /hpf (0-2); Squamous Epithelial Cells Mod /hpf (Few)
[2021-03-08] MEDS ORDERED: CEFP200 PO (14:30)
== END 2021-03-08 14:41 | disposition home or self-care (01) ==
LOC: ER 11:31
PROVIDERS: Physician Assistant
DX: N20.0 Calculus of kidney (principal); N39.0 Urinary tract infection, site not specified; D72.829 Elevated white blood cell count, unspecified; I10 Essential (primary) hypertension; E11.9 Type 2 diabetes mellitus without complications; I25.2 Old myocardial infarction; Z88.8 Allergy status to other drugs, medicaments and biological substances; Z79.899 Other long term (current) drug therapy; Z79.4 Long term (current) use of insulin; Z79.82 Long term (current) use of aspirin
CPT/HCPCS: 74176; 80053; 81001; 85025; 87077; 87086; 87186; A9270; J1885

== ENCOUNTER 2021-03-15 18:16 | Emergency (ER) | payer MEDICARE ==
[~2021-03-15] VITALS: Ht 170.2 cm; Wt 97.5 kg
[~2021-03-15 18:16] MED LIST changes: +CEFP200 PO
[2021-03-15 20:17] LABS: Source, Urine Clean Catch
[2021-03-15 20:29] LABS: Appearance, Urine Clear (Clear); Bilirubin, Urine Neg (Neg); Blood, Urine Neg (Neg); Color, Urine Yellow (P-Yellow); Glucose Qualitative, Urine Neg (Neg); Ketones, Urine Neg (Neg); Leukocyte Esterase, Urine 2+ (Neg); Nitrite, Urine Neg (Neg); Protein, Urine 2+ (Neg); Specific Gravity, Urine 1.025 (1.003-1.022); Urobilinogen, Urine NORM (Normal)
[2021-03-15 20:41] LABS: BASOPHILS ABSOLUTE AUTO 0.06 K/mm3 (0.00-0.23); BASOPHILS PERCENT AUTO 1 % (0-2); EOSINOPHILS ABSOLUTE AUTO 0.05 K/mm3 (0.00-0.68); EOSINOPHILS PERCENT AUTO 0 % (0-6); Hematocrit 45.3 % (37.0-53.0); Hemoglobin 15.1 g/dL (13.5-17.5); IMMATURE GRAN ABSOLUTE AUTO 0.07 K/mm3 (0.00-0.10); IMMATURE GRAN PERCENT AUTO 1 % (0-1); LYMPHOCYTES ABSOLUTE AUTO 2.23 K/mm3 (0.84-5.20); LYMPHOCYTES PERCENT AUTO 19 % (21-46); MONOCYTES ABSOLUTE AUTO 0.93 K/mm3 (0.16-1.47); MONOCYTES PERCENT AUTO 8 % (4-13); Mean Corpuscular HGB 29.6 pg (26.0-34.0); Mean Corpuscular HGB Conc 33.3 g/dL (31.5-36.5); Mean Corpuscular Volume 89 fL (80-100); Mean Platelet Volume 10.9 fL (9.1-12.4); NEUTROPHILS ABSOLUTE AUTO 8.47 K/mm3 (1.96-9.15); NEUTROPHILS PERCENT AUTO 72 % (41-73); Platelet Count 249 K/mm3 (150-400); RDW Coefficient Variation 14.1 % (11.7-14.2); RDW Standard Deviation 45.7 fL (35.1-46.3); White Blood Cell Count 11.81 K/mm3 (4.00-11.30)
[2021-03-15 20:46] LABS: Bacteria Few /hpf; Granular Casts 0-2 /lpf (0); Hyaline Casts 0-2 /lpf (0-2); Mucus Light (0-Heavy); Red Blood Cells, Urine 0-2 /hpf (0-2); Squamous Epithelial Cells Few /hpf (Few)
[2021-03-15 21:00] LABS: Alanine Aminotransfer (ALT/SGP 31 U/L (12-78); Albumin, Blood 3.7 g/dL (3.4-5.0); Albumin/Globulin Ratio 1.1 (0.8-1.8); Alk Phos 51 U/L (50-136); Anion Gap 9 mmol/L (6-16); Aspartate Aminotrans (AST/SGOT 14 U/L (12-37); Bilirubin, Total 0.5 mg/dL (0.1-1.0); Blood Urea Nitrogen 26 mg/dL (8-24); Bun/Creatinine Ratio 30.9 (12.0-20.0); CO2, Blood 25 mmol/L (21-32); Calcium, Blood 8.9 mg/dL (8.5-10.1); Chloride, Blood 104 mmol/L (98-108); Creatinine, Blood 0.84 mg/dL (0.60-1.20); Globulin, Blood 3.5 g/dL (2.2-4.0); Glomerular Filtration Rate >60 (60-); Glucose, Blood 133 mg/dL (70-99); Potassium, Blood 3.7 mmol/L (3.5-5.5); Sodium, Blood 138 mmol/L (136-145); Total Protein, Blood 7.2 g/dL (6.4-8.2)
[2021-03-15] MEDS ORDERED: LEVFLO500 PO (23:41)
[2021-03-15] MEDS ORDERED: NAPR500 PO (23:42)
== END 2021-03-16 00:06 | disposition home or self-care (01) ==
LOC: ER 18:16
PROVIDERS: Physician Assistant
DX: N39.0 Urinary tract infection, site not specified (principal); K80.20 Calculus of gallbladder without cholecystitis without obstruction; N45.2 Orchitis; I10 Essential (primary) hypertension; E11.9 Type 2 diabetes mellitus without complications; I25.2 Old myocardial infarction; Z79.899 Other long term (current) drug therapy
CPT/HCPCS: 74176; 76770; 76870; 80053; 81001; 83690; 85025; 96365; 96375; 99284-25; J0696; J1642; J1885; J2405; J7030

== ENCOUNTER 2021-04-18 11:55 | Emergency (ER) | payer MEDICARE, BC ==
[~2021-04-18] VITALS: Ht 162.6 cm; Wt 81.7 kg
[~2021-04-18 11:55] MED LIST changes: +LEVFLO500 PO; +NAPR500 PO
== END 2021-04-18 12:29 | disposition home or self-care (01) ==
LOC: ER 11:55
DX: F41.9 Anxiety disorder, unspecified (principal); Z88.8 Allergy status to other drugs, medicaments and biological substances; Z79.899 Other long term (current) drug therapy; Z79.82 Long term (current) use of aspirin; Z79.4 Long term (current) use of insulin; Z79.52 Long term (current) use of systemic steroids; I10 Essential (primary) hypertension; E11.9 Type 2 diabetes mellitus without complications; E78.00 Pure hypercholesterolemia, unspecified; I25.2 Old myocardial infarction; Z87.442 Personal history of urinary calculi
CPT/HCPCS: 99282

== ENCOUNTER 2021-05-09 01:15 | Emergency (ER) | payer BC, MEDICARE ==
[~2021-05-09] VITALS: Ht 170.2 cm; Wt 93.0 kg
== END 2021-05-09 04:00 | disposition home or self-care (01) ==
LOC: ER 01:15
DX: S00.93XA Contusion of unspecified part of head, initial encounter (principal); I10 Essential (primary) hypertension; E11.9 Type 2 diabetes mellitus without complications; I25.2 Old myocardial infarction; Z79.899 Other long term (current) drug therapy; W01.0XXA Fall on same level from slipping, tripping and stumbling without subsequent striking against object, initial encounter
CPT/HCPCS: 99283; A9270